=== PATIENT | female | born 1945 ===

== ENCOUNTER 2017-03-08 06:36 | Day surgery (SDC) | payer MEDICARE, OTHER ==
[2017-03-01 10:53] VITALS: BMI 29.5
[2017-03-08 06:58] VITALS: TEMP 97.1
[2017-03-08] MEDS ORDERED: Propofol 10 mg/ml Inj (20 ML) ONE (08:00)
[2017-03-08] MEDS ORDERED: Lidocaine 2% Inj (20ml) ONE (08:00)
[2017-03-08] MEDS ORDERED: Sodium Chloride 0.9% 1,000 ML IV SCH (08:30)
[2017-03-08 08:32] VITALS: O2SAT 98
[2017-03-08 08:52] VITALS: PULSE 60
[2017-03-08 09:18] VITALS: BP 109/65; RESP 14
== END 2017-03-08 09:35 | disposition home or self-care (01) ==
LOC: ENDO 06:36
PROVIDERS: ATTEND Specialist
DX: K21.0 Gastro-esophageal reflux disease with esophagitis (principal); K29.50 Unspecified chronic gastritis without bleeding; B19.20 Unspecified viral hepatitis C without hepatic coma; K44.9 Diaphragmatic hernia without obstruction or gangrene; K74.60 Unspecified cirrhosis of liver; I10 Essential (primary) hypertension; M19.90 Unspecified osteoarthritis, unspecified site; F32.89 Other specified depressive episodes; K59.09 Other constipation
CPT/HCPCS: 43239; 88305; 88342; J2704; J7040 ×2

== ENCOUNTER 2018-02-19 13:52 | Outpatient (CLI) | payer MEDICARE, OTHER | END 2018-02-19 13:53 | disposition home or self-care (01) | LOC: RAD 13:52 ==

== ENCOUNTER 2018-03-08 08:57 | Outpatient (CLI) | payer MEDICARE, OTHER | END 2018-03-08 08:58 | disposition home or self-care (01) | LOC: RAD 08:57 ==